=== PATIENT | female | born 1950 | race Caucasian/White ===

== ENCOUNTER 2024-11-28 11:55 | Outpatient (CLI) | payer MEDICARE, SELFPAY ==
[2024-11-28 12:43] LABS: Basophils % 0.1 % (0.1-2.0); Hemoglobin 9.2 g/dL (12.2-16.2); Lymphocytes # 2.3 K/mm3 (0.7-4.5); Mean Corpuscular HGB Conc 33.6 g/dL (31.8-35.4); Mean Corpuscular Hemoglobin 27.6 pg (27.0-31.2); Mean Corpuscular Volume 82.3 fl (81-99); Mean Platelet Volume 9.8 fl (7.4-10.4); Monocytes # 0.4 K/mm3 (0.1-1.0); Monocytes % 2.6 % (1.7-9.3); Neutrophils # 10.9 K/mm3 (1.8-7.8); Neutrophils % 79.9 % (37.0-80.0); Platelet Count 401 K/mm3 (142-424); Red Blood Count 3.33 M/mm3 (4.20-5.40); Red Cell Distribution Width 14.1 % (11.5-17.5); White Blood Count 13.6 K/mm3 (4.8-10.8)
[2024-11-28 13:21] LABS: Alanine Aminotransferase 63 U/L (12-78); Albumin Level 4.3 g/dl (3.5-5.0); Albumin/Globulin Ratio 1.3 (1.1-1.8); Alkaline Phosphatase 110 U/L (38-126); Anion Gap 17.9 mEq/L (5-15); Aspartate Amino Transferase 51 U/L (14-36); Bilirubin,Total 0.7 mg/dl (0.2-1.3); Blood Urea Nitrogen 45 mg/dl (7-17); Calcium 9.1 mg/dl (8.4-10.2); Carbon Dioxide 17 mmol/L (22.0-30.0); Chloride 106 mmol/L (98-107); Estimated Glomerular Filt Rate 15 ml/min (>60); GFR (African American) 19 ML/MIN (>60); Globulin 3.2 g/dL (1.3-3.2); Glucose 104 mg/dl (74-100); Potassium 4.9 mmoL/L (3.5-5.1); Sodium 136 mmol/L (136-145); Total Protein,Serum 7.5 g/dl (6.3-8.2)
[2024-11-28 13:24] LABS: Erythrocyte Sedimentation Rate > 140 mm/hr (0-30)
[2024-11-28 13:26] LABS: C-Reactive Protein 2.2 mg/L (0-4)
[2024-11-28 13:27] LABS: Hematocrit 27.4 % (37.0-47.0)
[2024-11-28 14:09] LABS: Iron 120 ug/dL (37-170)
[2024-11-28 14:11] LABS: Vitamin B12 731 pg/mL (239-931)
[2024-11-28 14:19] LABS: Total Iron Binding Capacity 434 ug/dL (265-497)
[2024-11-29 05:12] LABS: Hep B Core Ab, Total Negative (Negative); Hep B Surface Ab, Qual Non Reactive (.); Hep Be Ag Negative (Negative)
[2024-11-30 19:27] LABS: QuantiFERON-TB Gold Plus Negative (Negative)
[2024-12-08 03:52] LABS: Adalimumab Drug Level 9.2 ug/mL (.); Anti-Adalimumab Antibody < 25 ng/mL (.)
[2024-12-09 03:48] LABS: 1,25 Dihydroxy Vitamin D 30 pg/mL (.); 1,25-Dihydroxy, Vitamin D-2 <10 pg/mL (.); 1,25-Dihydroxy, Vitamin D-3 30 pg/mL (.)
== END 2024-11-28 23:59 | disposition home or self-care (01) ==
LOC: LAB 11:59
PROVIDERS: Visit Provider Internal Medicine Gastroenterology
DX: K50.819 Crohn's disease of both small and large intestine with unspecified complications (principal)
CPT/HCPCS: 36415; 80053; 80145; 82397; 82607; 82652; 82728; 83540; 83550; 85025; 85651; 86140; 86480; 86704; 86706; 87350